=== PATIENT | male | born 1945 | race Caucasian/White ===

== ENCOUNTER 2022-07-14 09:30 | Day surgery (SDC) | payer MEDICARE, OTHER ==
[~2022-07-14] VITALS: Ht 182.9 cm; Wt 85.3 kg
[2022-07-14] VITALS (7 sets, daily range): BP systolic 112–126; BP diastolic 56–75
[2022-07-14] MEDS ORDERED: LISI20TA28 PO (10:05)
[2022-07-14] MEDS ORDERED: MECL-226 PO (10:05)
[2022-07-14] MEDS ORDERED: LEVO40CA PO (10:05)
[2022-07-14] MEDS ORDERED: BUPR-72 PO (10:05)
[2022-07-14] MEDS ORDERED: QUET25TA36 (10:05)
[2022-07-14] MEDS ORDERED: FENO145T25 PO (10:05)
[2022-07-14] MEDS ORDERED: KEN0.1O TOP (10:05)
[2022-07-14] MEDS ORDERED: ALPR0.5T8 PO (10:05)
[2022-07-14] MEDS ORDERED: UBIQ100C2 PO (10:07)
[2022-07-14] MEDS ORDERED: MELA5CAP PO (10:07)
[2022-07-14] MEDS ORDERED: FOLI0.4T6 PO (10:08)
[2022-07-14] MEDS ORDERED: FLAX10007 PO (10:08)
[2022-07-14] MEDS ORDERED: cefazolin 2gm/D5W 100mL 100 ML IV ONE (10:16)
[2022-07-14] MEDS ORDERED: vancomycin 1,500 MG in NS 300ml IV soln IV ONE (10:16)
[2022-07-14 10:21] LABS: EOSINOPHILS # (AUTO) 0.1 X10'3 (0-0.9); EOSINOPHILS % (AUTO) 2.3 % (0-6); HEMATOCRIT 41.8 % (42.0-52.0); HEMOGLOBIN 14.1 g/dl (14.0-17.9); LYMPHOCYTES % (AUTO) 25.8 % (21-51); MEAN CORPUSCULAR HEMOGLOBIN 30.1 PG (27.0-31.0); MEAN CORPUSCULAR HGB CONC 33.8 g/dL (33.0-36.5); MEAN CORPUSCULAR VOLUME 89.1 FL (78-98); MEAN PLATELET VOLUME 7.3 FL (7.4-10.4); MONOCYTES # (AUTO) 0.5 X10'3 (0-0.9); MONOCYTES % (AUTO) 11.6 % (2-12); NEUTROPHILS # (AUTO) 2.4 X10'3 (1.8-7.7); NEUTROPHILS % (AUTO) 59.3 % (42-75); PLATELET COUNT 193 X10'3 (140-440); RED BLOOD COUNT 4.69 X10'6 (4.70-6.10); RED CELL DISTRIBUTION WIDTH 14.4 % (11.5-14.5)
[2022-07-14 10:33] LABS: BLOOD UREA NITROGEN 34 MG/DL (7-18); CHLORIDE 104 MMOL/L (99-107); CREATININE 0.79 MG/DL (0.60-1.10); GLUCOSE 82 MG/DL (70-104); POTASSIUM 3.8 MMOL/L (3.5-5.1); SODIUM 143 MMOL/L (135-145); eGFR > 90 ML/MIN
[2022-07-14 10:35] LABS: ALBUMIN 3.8 G/DL (3.4-5.0); ANION GAP 9 (8-16); CALCIUM 9.4 MG/DL (8.5-10.1)
[2022-07-14] MEDS ORDERED: LIDOCAINE 2%/EPI 1:100,000 inj. Multi-dose 20 ML VIAL ONE (10:41)
[2022-07-14] MEDS ORDERED: proCHLORperazine 10 MG/2 ml inj ONE (10:42)
[2022-07-14] MEDS ORDERED: midazolam 1 mg/ML 2ml injection ONE ×2 (10:42→11:44)
[2022-07-14] MEDS ORDERED: fentaNYL/PF 50MCG/1 ML 2ML syringe ONE (10:42)
[2022-07-14] MEDS ORDERED: diphenhydrAMINE 50 mg/ml inj ONE (12:13)
[2022-07-14] MEDS ORDERED: hydrocortisone sod succ/PF 100mg/2ml inj. ONE (12:13)
[2022-07-14] MEDS ORDERED: HYDROcodone/acetaminophen 10/325mg tab PO PRN (13:05)
[2022-07-14] MEDS ORDERED: HYDROcodone/acetaminophen 5mg/325mg tablet PO PRN (13:05)
[2022-07-14] MEDS ORDERED: normal saline 1000ml 400 ML IV SCH (13:05)
== END 2022-07-14 14:21 | disposition home or self-care (01) ==
LOC: SSTAY O 09:30
PROVIDERS: ATTEND Internal Medicine Cardiovascular Disease
DX: Z45.010 Encounter for checking and testing of cardiac pacemaker pulse generator [battery] (principal); I44.2 Atrioventricular block, complete; E78.5 Hyperlipidemia, unspecified; I10 Essential (primary) hypertension; G47.30 Sleep apnea, unspecified; Z79.899 Other long term (current) drug therapy; Z98.890 Other specified postprocedural states; Z79.01 Long term (current) use of anticoagulants; Z82.49 Family history of ischemic heart disease and other diseases of the circulatory system; Z88.6 Allergy status to analgesic agent; I44.30 Unspecified atrioventricular block
CPT/HCPCS: 33228; 36415; 80048; 83735; 85025; 85610; 93005; C1769; C1786; J0690; J0780; J1200; J1720; J2250; J3010; J3370; J7030; 99152; 99153

== ENCOUNTER 2022-08-15 07:56 | Day surgery (SDC) | payer MEDICARE, OTHER ==
[~2022-08-15] VITALS: Ht 180.3 cm; Wt 86.1 kg
[2022-08-15] VITALS (11 sets, daily range): BP systolic 125–145; BP diastolic 76–90
[~2022-08-15 07:56] MED LIST: ALPR0.5T8 PO; BUPR-72 PO; FENO145T25 PO; FLAX10007 PO; FOLI0.4T6 PO; KEN0.1O TOP; LEVO40CA PO; LISI20TA28 PO; MECL-226 PO; MELA5CAP PO; QUET25TA36; UBIQ100C2 PO
[2022-08-15] MEDS ORDERED: normal saline 1000ml 1,000 ML IV SCH ×2 (08:15→13:27)
[2022-08-15] MEDS ORDERED: vancomycin 1,500 MG in NS 300ml IV soln IV ONE (08:30)
[2022-08-15] MEDS ORDERED: cefazolin 2gm/D5W 100mL 100 ML IV ONE (08:30)
[2022-08-15] MEDS ORDERED: DOXY100T30 PO (08:54)
[2022-08-15 08:55] LABS: BASOPHILS % (AUTO) 0.8 % (0-1); EOSINOPHILS # (AUTO) 0.2 X10'3 (0-0.9); EOSINOPHILS % (AUTO) 4.4 % (0-6); HEMATOCRIT 42.4 % (42.0-52.0); HEMOGLOBIN 14.3 g/dl (14.0-17.9); LYMPHOCYTES % (AUTO) 24.3 % (21-51); MEAN CORPUSCULAR HEMOGLOBIN 29.8 PG (27.0-31.0); MEAN CORPUSCULAR HGB CONC 33.7 g/dL (33.0-36.5); MEAN CORPUSCULAR VOLUME 88.3 FL (78-98); MEAN PLATELET VOLUME 7.4 FL (7.4-10.4); MONOCYTES # (AUTO) 0.4 X10'3 (0-0.9); NEUTROPHILS # (AUTO) 2.6 X10'3 (1.8-7.7); NEUTROPHILS % (AUTO) 60.5 % (42-75); PLATELET COUNT 159 X10'3 (140-440); RED CELL DISTRIBUTION WIDTH 13.7 % (11.5-14.5); WHITE BLOOD COUNT 4.3 X10'3 (4.5-11.0)
[2022-08-15 09:01] LABS: ALBUMIN 3.8 G/DL (3.4-5.0); ANION GAP 5 (8-16); BLOOD UREA NITROGEN 30 MG/DL (7-18); BUN/CREATININE RATIO 35.7 (10.0-20.0); CALCIUM 9.6 MG/DL (8.5-10.1); CHLORIDE 105 MMOL/L (99-107); CREATININE 0.84 MG/DL (0.60-1.10); GLUCOSE 93 MG/DL (70-104); MAGNESIUM 1.9 MG/DL (1.5-2.4); POTASSIUM 3.8 MMOL/L (3.5-5.1); SODIUM 141 MMOL/L (135-145); eGFR 88 ML/MIN
[2022-08-15] MEDS ORDERED: midazolam 1 mg/ML 2ml injection ONE ×2 (10:25→10:26)
[2022-08-15] MEDS ORDERED: fentaNYL/PF 50MCG/1 ML 2ML syringe ONE ×2 (10:25→12:28)
[2022-08-15] MEDS ORDERED: vancomycin 1,000mg inj ONE (10:26)
[2022-08-15] MEDS ORDERED: LIDOCAINE 2%/EPI 1:100,000 inj. Multi-dose 20 ML VIAL ONE (10:26)
--- NOTE | 2022-08-15 10:30 | NUR ---
Patient experiencing redness to upper extremity and head and complaining of itching during infusion of IV vancomycin. Infusion stopped. Dr. Davis notified. lab rep RN to give IV benadryl.
[2022-08-15] MEDS ORDERED: diphenhydrAMINE 50 mg/ml inj ONE ×2 (10:49→10:53)
[2022-08-15] MEDS ORDERED: ceFAZolin 1000mg inj ONE (12:16)
[2022-08-15] MEDS ORDERED: HYDROmorphone 1 mg/ml syringe ONE (12:23)
[2022-08-15] MEDS ORDERED: HYDROcodone/acetaminophen 5mg/325mg tablet PO PRN (13:30)
[2022-08-15] MEDS ORDERED: HYDROcodone/acetaminophen 10/325mg tab PO PRN (13:30)
[2022-08-15] MEDS ORDERED: piperacillin/tazo 4.5gm/100ml IVPB IV ONE (13:40)
== END 2022-08-15 18:20 | disposition home or self-care (01) ==
LOC: SSTAY O 07:56
PROVIDERS: ATTEND Internal Medicine Cardiovascular Disease
DX: T82.7XXA Infection and inflammatory reaction due to other cardiac and vascular devices, implants and grafts, initial encounter (principal); I10 Essential (primary) hypertension; E78.5 Hyperlipidemia, unspecified; G47.30 Sleep apnea, unspecified; Z98.890 Other specified postprocedural states; Z79.899 Other long term (current) drug therapy; Z85.47 Personal history of malignant neoplasm of testis; Z88.5 Allergy status to narcotic agent; Z87.891 Personal history of nicotine dependence; Z72.89 Other problems related to lifestyle; Z82.49 Family history of ischemic heart disease and other diseases of the circulatory system; Y83.8 Other surgical procedures as the cause of abnormal reaction of the patient, or of later complication, without mention of misadventure at the time of the procedure
CPT/HCPCS: 33228; 36415; 80048; 83735; 85025; 85610; 87070; 87075; 87077; 87186; 93005; 99152; 99153; C1785; J0690; J1170; J1200; J2250; J2543; J3010; J3370; J7030; A6260; A6449

== ENCOUNTER 2024-05-11 17:50 | Inpatient (IN) | payer MEDICARE, OTHER ==
[~2024-05-11] VITALS: Ht 182.9 cm; Wt 78.2 kg
[~2024-05-11 17:50] MED LIST changes: +ALPR-623 PO; +CIPR250T26 PO; -FLAX10007 PO; -FOLI0.4T6 PO; -KEN0.1O TOP; -QUET25TA36; +QUET25TA36 PO; -UBIQ100C2 PO
[2024-05-11 18:23] LABS: BASOPHILS % (AUTO) 0.8 % (0-1); EOSINOPHILS # (AUTO) 0.1 X10'3 (0-0.9); EOSINOPHILS % (AUTO) 1.5 % (0-6); HEMATOCRIT 44.4 % (42.0-52.0); LYMPHOCYTES # (AUTO) 0.9 X10'3 (1.1-4.8); LYMPHOCYTES % (AUTO) 18.4 % (21-51); MEAN CORPUSCULAR HEMOGLOBIN 30.1 PG (27.0-31.0); MEAN CORPUSCULAR HGB CONC 33.9 g/dL (33.0-36.5); MEAN PLATELET VOLUME 8.1 FL (7.4-10.4); MONOCYTES # (AUTO) 0.5 X10'3 (0-0.9); MONOCYTES % (AUTO) 9.7 % (2-12); NEUTROPHILS # (AUTO) 3.5 X10'3 (1.8-7.7); NEUTROPHILS % (AUTO) 69.6 % (42-75); PLATELET COUNT 220 X10'3 (140-440); RED BLOOD COUNT 4.99 X10'6 (4.70-6.10); RED CELL DISTRIBUTION WIDTH 14.2 % (11.5-14.5)
[2024-05-11 18:33] LABS: ALANINE AMINOTRANSFERASE 39 U/L (12-78); ALBUMIN 4.5 G/DL (3.4-5.0); ALBUMIN/GLOBULIN RATIO 1.3 (1.1-1.5); ALKALINE PHOSPHATASE 58 IU/L (46-116); ANION GAP 10 (8-16); ASPARTATE AMINO TRANSFERASE 27 U/L (10-37); BILIRUBIN,TOTAL 0.5 MG/DL (0.1-1.0); BLOOD UREA NITROGEN 38 MG/DL (7-18); BUN/CREATININE RATIO 44.2 (10.0-20.0); CALCIUM 10.1 MG/DL (8.5-10.1); CHLORIDE 102 MMOL/L (99-107); CREATININE 0.86 MG/DL (0.60-1.10); GLUCOSE 95 MG/DL (70-104); POTASSIUM 4.2 MMOL/L (3.5-5.1); SODIUM 142 MMOL/L (135-145); TOTAL CARBON DIOXIDE 29.7 MMOL/L (24-32); TOTAL PROTEIN 7.9 G/DL (6.4-8.2); eCRCL 75 ML/MIN; eGFR 86 ML/MIN
[2024-05-11 18:41] LABS: PRO BRAIN NATRIURETIC PEPTIDE 299 PG/ML (0-450)
[2024-05-11] MEDS ORDERED: iohexol 300mg/ml 100ml inj. ONE (22:13)
[2024-05-11] MEDS ORDERED: iohexol 350MG/ML 100ml bottle IV ONE (22:33)
[2024-05-11] MEDS: normal saline 1000ML IV soln IVB ONE (23:11)
[2024-05-12] MEDS ORDERED: potassium Cl 40MEQ/1/2NS 520ml 520 ML IV PRN (03:10)
[2024-05-12] MEDS ORDERED: ondansetron/PF 4mg/2ml inj IV PRN (03:10)
[2024-05-12] MEDS ORDERED: magnesium sulf-water 2g/50mL 50 ML IV PRN (03:10)
[2024-05-12] MEDS ORDERED: mag hydrox/Alum hydrox/simeth 30ml oral suspension PO PRN (03:10)
[2024-05-12] MEDS ORDERED: magnesium sulf-water 4G/100mL 100 ML IV PRN (03:10)
[2024-05-12] MEDS: PERFLUTREN PROTEIN-A MICROSPHR (Optison) 0.22 MG/ML 3ML VIAL IV ONE (03:10)
[2024-05-12] MEDS ORDERED: HYDROmorphone/PF 0.2 MG/ML SYRINGE IV PRN (03:10)
[2024-05-12] MEDS ORDERED: HYDROmorphone inj. 0.5 MG/0.5 ML DISP.SYRIN IV PRN (03:10)
[2024-05-12] MEDS ORDERED: magnesium hydroxide 30ml (MOM) UD suspension PO PRN (03:10)
[2024-05-12] MEDS ORDERED: potassium Cl 20 mEq SR tablet PO PRN ×2 (03:10)
[2024-05-12] MEDS ORDERED: acetaminophen 325mg tablet PO PRN (03:10)
[2024-05-12] MEDS ORDERED: magnesium Cl slow-release 64mg tablet PO PRN (03:10)
[2024-05-12] MEDS: normal saline 1000ml 1,000 ML IV SCH (04:09)
[2024-05-12 04:27] LABS: BILIRUBIN,URINE NEGATIVE (Neg); CLARITY,URINE CLEAR (Clear); COLOR,URINE YELLOW (Yellow); GLUCOSE, URINE NEGATIVE (Neg); KETONES,URINE NEGATIVE (Neg); LEUKOCYTE ESTERASE ,URINE NEGATIVE (Neg); NITRITES, URINE NEGATIVE (Neg); OCCULT BLOOD,URINE NEGATIVE (Neg); PROTEIN,URINE NEGATIVE (Neg); UROBILINOGEN,URINE 0.2 E.U/dL (0.2-1.0)
[2024-05-12 04:44] LABS: UA COLLECTION TYPE URINAL
[2024-05-12] MEDS: K and/or MAG REPLACEMENT MC SCH (08:00)
[2024-05-12] MEDS: docusate sod 100mg capsule PO SCH (08:00)
[2024-05-12 11:34] VITALS: BP 150/82; PULSE 67; RESP 14; TEMP 98.5; O2SAT 100
[2024-05-12 12:53] LABS: MAGNESIUM 1.9 MG/DL (1.5-2.4)
[2024-05-12 16:04] VITALS: BP 159/78; PULSE 73
[2024-05-12 16:05] VITALS: BP_SYST 139; BP_SYST 148; BP_DIAS 78; BP_DIAS 83; PULSE 72; PULSE 84
[2024-05-12 18:00] VITALS: BP 166/75; PULSE 69; RESP 16; TEMP 98.9; O2SAT 99
[2024-05-12 20:00] VITALS: BP_SYST 142; BP_SYST 146; BP_SYST 155; BP_DIAS 69; BP_DIAS 72; PULSE 70; PULSE 72; PULSE 75; RESP 18; O2SAT 96
[2024-05-12 22:00] VITALS: BP 165/69; PULSE 60; RESP 18; TEMP 98.6; O2SAT 99
[2024-05-13] MEDS: acetaminophen 325mg tablet PO PRN (01:51)
[2024-05-13 02:00] VITALS: BP 127/63; PULSE 56; RESP 18; TEMP 98.6; O2SAT 100
[2024-05-13 05:10] LABS: BASOPHILS % (AUTO) 0.4 % (0-1); EOSINOPHILS # (AUTO) 0.1 X10'3 (0-0.9); EOSINOPHILS % (AUTO) 1.4 % (0-6); HEMATOCRIT 41.6 % (42.0-52.0); HEMOGLOBIN 14.4 g/dl (14.0-17.9); LYMPHOCYTES # (AUTO) 0.9 X10'3 (1.1-4.8); LYMPHOCYTES % (AUTO) 14.7 % (21-51); MEAN CORPUSCULAR HEMOGLOBIN 30.9 PG (27.0-31.0); MEAN CORPUSCULAR HGB CONC 34.7 g/dL (33.0-36.5); MEAN CORPUSCULAR VOLUME 89.1 FL (78-98); MEAN PLATELET VOLUME 8.2 FL (7.4-10.4); MONOCYTES # (AUTO) 0.8 X10'3 (0-0.9); MONOCYTES % (AUTO) 13.8 % (2-12); NEUTROPHILS # (AUTO) 4.1 X10'3 (1.8-7.7); NEUTROPHILS % (AUTO) 69.7 % (42-75); PLATELET COUNT 173 X10'3 (140-440); RED BLOOD COUNT 4.67 X10'6 (4.70-6.10); RED CELL DISTRIBUTION WIDTH 14.1 % (11.5-14.5); WHITE BLOOD COUNT 5.9 X10'3 (4.5-11.0)
[2024-05-13 05:33] LABS: ALANINE AMINOTRANSFERASE 30 U/L (12-78); ALBUMIN 3.5 G/DL (3.4-5.0); ALBUMIN/GLOBULIN RATIO 1.1 (1.1-1.5); ALKALINE PHOSPHATASE 51 IU/L (46-116); ANION GAP 7 (8-16); ASPARTATE AMINO TRANSFERASE 26 U/L (10-37); BILIRUBIN,TOTAL 0.8 MG/DL (0.1-1.0); BLOOD UREA NITROGEN 24 MG/DL (7-18); BUN/CREATININE RATIO 29.6 (10.0-20.0); CHLORIDE 106 MMOL/L (99-107); CREATININE 0.81 MG/DL (0.60-1.10); GLUCOSE 90 MG/DL (70-104); MAGNESIUM 1.8 MG/DL (1.5-2.4); POTASSIUM 3.8 MMOL/L (3.5-5.1); SODIUM 139 MMOL/L (135-145); TOTAL CARBON DIOXIDE 26.5 MMOL/L (24-32); TOTAL PROTEIN 6.6 G/DL (6.4-8.2); eCRCL 80 ML/MIN; eGFR > 90 ML/MIN
[2024-05-13 06:00] VITALS: BP_SYST 138; BP_SYST 145; BP_SYST 155; BP_DIAS 76; BP_DIAS 77; BP_DIAS 79; PULSE 60; PULSE 66; PULSE 76; RESP 18; TEMP 98.2; O2SAT 95
[2024-05-13] MEDS: LEVOMILNACIPRAN HYDROCHLORIDE 40 MG PO SCH (08:00)
[2024-05-13] MEDS: ALPRAZolam 0.5mg tablet PO SCH (08:14)
[2024-05-13] MEDS: lisinopril 20mg tablet PO SCH (08:15)
[2024-05-13] MEDS: meclizine 12.5mg tablet PO SCH (08:16)
[2024-05-13] MEDS: buPROPion SR 150mg tablet PO SCH (08:16)
[2024-05-13] MEDS: fenofibrate 145mg tablet PO SCH (08:16)
[2024-05-13 10:00] VITALS: BP 111/83; PULSE 59; RESP 16; TEMP 97.4; O2SAT 97
[2024-05-13] MEDS: aspirin 81mg, enteric-coated 1 TAB TABLET.DR PO ONE (13:11)
[2024-05-13 18:00] VITALS: BP 157/80; PULSE 65; RESP 16; TEMP 98.4; O2SAT 99
[2024-05-13 20:00] VITALS: BP_SYST 132; BP_SYST 136; BP_SYST 139; BP_DIAS 70; BP_DIAS 71; BP_DIAS 76; PULSE 59; PULSE 60; PULSE 64; RESP 16; O2SAT 99
[2024-05-13] MEDS: QUEtiapine 25mg tablet PO SCH (20:13)
[2024-05-13] MEDS: Melatonin 3mg tablet PO SCH (20:13)
[2024-05-13 22:00] VITALS: BP_SYST 100; BP_SYST 164; BP_DIAS 56; BP_DIAS 77; PULSE 61; PULSE 63; RESP 18; TEMP 97.8; TEMP 98.2; O2SAT 93; O2SAT 96
[2024-05-14 05:33] LABS: BASOPHILS % (AUTO) 0.6 % (0-1); EOSINOPHILS # (AUTO) 0.1 X10'3 (0-0.9); EOSINOPHILS % (AUTO) 2.2 % (0-6); HEMOGLOBIN 13.6 g/dl (14.0-17.9); LYMPHOCYTES # (AUTO) 0.9 X10'3 (1.1-4.8); LYMPHOCYTES % (AUTO) 16.5 % (21-51); MEAN CORPUSCULAR HEMOGLOBIN 30.8 PG (27.0-31.0); MEAN CORPUSCULAR HGB CONC 34.8 g/dL (33.0-36.5); MEAN CORPUSCULAR VOLUME 88.5 FL (78-98); MEAN PLATELET VOLUME 8.2 FL (7.4-10.4); MONOCYTES # (AUTO) 0.7 X10'3 (0-0.9); MONOCYTES % (AUTO) 13.1 % (2-12); NEUTROPHILS # (AUTO) 3.6 X10'3 (1.8-7.7); NEUTROPHILS % (AUTO) 67.6 % (42-75); PLATELET COUNT 179 X10'3 (140-440); RED BLOOD COUNT 4.41 X10'6 (4.70-6.10); RED CELL DISTRIBUTION WIDTH 13.9 % (11.5-14.5); WHITE BLOOD COUNT 5.3 X10'3 (4.5-11.0)
[2024-05-14 06:00] VITALS: BP 136/71; PULSE 59; RESP 16; TEMP 97.5; O2SAT 95
[2024-05-14 06:07] LABS: ALANINE AMINOTRANSFERASE 26 U/L (12-78); ALBUMIN 3.4 G/DL (3.4-5.0); ALBUMIN/GLOBULIN RATIO 1.2 (1.1-1.5); ALKALINE PHOSPHATASE 48 IU/L (46-116); ANION GAP 3 (8-16); ASPARTATE AMINO TRANSFERASE 20 U/L (10-37); BILIRUBIN,TOTAL 0.6 MG/DL (0.1-1.0); BLOOD UREA NITROGEN 23 MG/DL (7-18); BUN/CREATININE RATIO 29.1 (10.0-20.0); CALCIUM 9.4 MG/DL (8.5-10.1); CHLORIDE 109 MMOL/L (99-107); CREATININE 0.79 MG/DL (0.60-1.10); GLUCOSE 89 MG/DL (70-104); POTASSIUM 4.4 MMOL/L (3.5-5.1); SODIUM 142 MMOL/L (135-145); TOTAL CARBON DIOXIDE 29.8 MMOL/L (24-32); TOTAL PROTEIN 6.2 G/DL (6.4-8.2); eCRCL 82 ML/MIN; eGFR > 90 ML/MIN
[2024-05-14] MEDS ORDERED: ASPI-1071 PO (07:25)
[2024-05-14 07:35] VITALS: BP_SYST 136; PULSE 61
[2024-05-14] MEDS: aspirin 81mg, enteric-coated 1 TAB TABLET.DR PO SCH (07:35)
[2024-05-14 08:00] VITALS: RESP 16; O2SAT 95
[2024-05-14 08:20] LABS: CHOL/HDL RATIO 3.9 (0.00-4.99); CHOLESTEROL 135 MG/DL (0-200); HDL CHOLESTEROL 35 MG/DL (35-60); LDL CHOLESTEROL 85 MG/DL (50-100); TRIGLYCERIDES 69 MG/DL (20-135)
== END 2024-05-14 12:40 | disposition home health service (06) | DRG 91 ==
LOC: ER 17:52 → ED HOLD 05-12 01:11 → ORTHO 4S 05-12 10:00
PROVIDERS: ADMIT Internal Medicine; ATTEND Nurse Practitioner Family
PROC: B3251ZZ Computerized Tomography (CT Scan) of Bilateral Common Carotid Arteries using Low Osmolar Contrast (ICD-10-PCS; principal; 2024-05-11)
PROC: B32G1ZZ Computerized Tomography (CT Scan) of Bilateral Vertebral Arteries using Low Osmolar Contrast (ICD-10-PCS; 2024-05-11)
PROC: B32R1ZZ Computerized Tomography (CT Scan) of Intracranial Arteries using Low Osmolar Contrast (ICD-10-PCS; 2024-05-11)
PROC: B3281ZZ Computerized Tomography (CT Scan) of Bilateral Internal Carotid Arteries using Low Osmolar Contrast (ICD-10-PCS; 2024-05-11)
DX: G93.0 Cerebral cysts (principal); G93.5 Compression of brain; D64.9 Anemia, unspecified; Z95.0 Presence of cardiac pacemaker; Z79.82 Long term (current) use of aspirin; Z79.899 Other long term (current) drug therapy
CPT/HCPCS: 36415; 70450; 70496; 70498; 70551; 71045; 74018; 80053; 80061; 81003; 83735; 83880; 84132; 84484; 85025; 87081; 93005; 93306; 97161; 97530; 99285; G0378; J7030; J8597; Q9967